=== PATIENT | female | born 1980 | race Caucasian/White ===

== ENCOUNTER 2017-08-30 22:33 | Inpatient (IN) | payer OTHER, MEDICAID ==
[2017-08-30] MEDS: SOD CHLORIDE 0.9% 1,000 ML IV (23:44)
[2017-08-30] MEDS: morphine 4 MG/ML VIAL IV (23:44)
[2017-08-30] MEDS: ONDANSETRON 4 MG INJ IV (23:44)
[2017-08-30 23:47] LABS: ADD MAN DIFF? NO
[2017-08-30 23:53] LABS: BASOPHILS % 0.2 % (0.0-2.0); HEMATOCRIT 36.5 % (37.0-47.0); HEMOGLOBIN 12.5 g/dl (12.0-16.0); LYMPHOCYTES # 0.7 10^3/ul (0.8-2.9); LYMPHOCYTES % 4.1 % (15.0-51.0); MEAN CORPUSCULAR HEMOGLOBIN 30.8 pg (29.0-33.0); MEAN CORPUSCULAR HGB CONC 34.2 g/dl (32.0-37.0); MEAN CORPUSCULAR VOLUME 89.9 fl (82.0-101.0); MEAN PLATELET VOLUME 9.9 fl (7.4-10.4); MONOCYTE # 1.2 10^3/ul (0.3-0.9); MONOCYTES % 6.4 % (0.0-11.0); NEUTROPHIL # 16.1 10^3/ul (1.6-7.5); NEUTROPHILS % 88.9 % (39.0-77.0); PLATELET COUNT 261 10^3/UL (140-415); RED BLOOD COUNT 4.06 10^6/ul (4.20-5.40); RED CELL DISTRIBUTION WIDTH 12.4 % (11.5-14.5)
[2017-08-30 23:53] LABS: WHITE BLOOD COUNT 18.1 10^3/ul (4.8-10.8)
[2017-08-30 23:57] LABS: ADD UMIC YES; UR ASCORBIC ACID NEGATIVE (NEGATIVE); UR BILIRUBIN (Dip) NEGATIVE (NEGATIVE); UR BLOOD (Dip) 3+ mg/dL (NEGATIVE); UR CLARITY CLEAR (CLEAR); UR COLOR YELLOW (YELLOW); UR GLUCOSE (Dip) 1+ mg/dL (NEGATIVE); UR KETONES (Dip) TRACE mg/dL (NEGATIVE); UR LEUKOCYTE ESTERASE (Dip) NEGATIVE Leu/ul (NEGATIVE); UR MUCUS MODERATE /HPF (NONE SEEN); UR NITRITE (Dip) NEGATIVE (NEGATIVE); UR RBC 3 /HPF (0-5); UR SPECIFIC GRAVITY (Dip) 1.025 (1.003-1.030); UR SQUAMOUS EPITHELIAL CELL FEW /HPF (FEW); UR TOTAL PROTEIN (Dip) NEGATIVE (NEGATIVE); UR UROBILINOGEN (Dip) NEGATIVE (NEGATIVE); UR WBC 3 /HPF (0-5)
[2017-08-31 00:09] LABS: LACTIC ACID 3.4 mmol/L (0.5-2.0)
[2017-08-31 00:14] LABS: ALANINE AMINOTRANSFERASE 24 IU/L (13-69); ALBUMIN 4.7 g/dl (3.3-4.9); ALBUMIN/GLOBULIN RATIO 1.42; ALKALINE PHOSPHATASE 88 IU/L (42-121); ANION GAP 23 (8-16); ASPARTATE AMINO TRANSFERASE 25 IU/L (15-46); BILIRUBIN,INDIRECT 0.4 mg/dl (0-1.1); BILIRUBIN,TOTAL 0.4 mg/dl (0.2-1.3); BLOOD UREA NITROGEN 12 mg/dl (7-20); CARBON DIOXIDE 22 mmol/L (21-31); CHLORIDE 98 mmol/L (97-110); GLUCOSE 134 mg/dl (70-220); LIPASE 116 U/L (23-300); POTASSIUM 3.7 mmol/L (3.5-5.1); SODIUM 139 mmol/L (135-144)
[2017-08-31] MEDS: SOD CHLORIDE 0.9% 100 ML (00:33)
[2017-08-31] MEDS: IOHEXOL 300MG/ML 150 ML BTL (00:33)
[2017-08-31] MEDS: SODIUM CHLORIDE 0.9% 1L BAG IV* (00:56)
[2017-08-31] MEDS: PIPER-TAZO 3.375 GM IV (PMX) 100 ML IVPB ×4 (01:21→18:13)
[2017-08-31] MEDS ORDERED: ONDANSETRON 4 MG INJ IV (02:00)
[2017-08-31 02:09] LABS: PROTIME 13.3 Sec (11.9-14.9)
[2017-08-31 02:10] LABS: LACTIC ACID 3.1 mmol/L (0.5-2.0)
[2017-08-31 02:11] LABS: PARTIAL THROMBOPLASTIN TIME 31.2 Sec (25.0-35.0)
[2017-08-31] MEDS: SOD CHLORIDE 0.9% 1,000 ML IV (02:37)
[2017-08-31] MEDS: LACTATED RINGER'S 1,000 ML IV ×4 (02:40→13:40)
[2017-08-31 02:45] LABS: TROPONIN-I < 0.012 ng/ml (0.00-0.12)
[2017-08-31] MEDS: morphine 2 MG INJ IV ×3 (02:47→22:45)
[2017-08-31] MEDS: NACL 0.9% 3 ML SYG IV (05:31)
[2017-08-31 07:00] LABS: LACTIC ACID 2.8 mmol/L (0.5-2.0)
[2017-08-31] MEDS ORDERED: LACTATED RINGER'S 1,000 ML IV (07:30)
[2017-08-31 11:03] LABS: LACTIC ACID 1.2 mmol/L (0.5-2.0)
[2017-08-31 13:12] LABS: FREE T4 (FREE THYROXINE) 1.13 ng/dl (0.79-2.35)
[2017-08-31 14:05] LABS: ADD MAN DIFF? NO
[2017-08-31 14:08] LABS: BASOPHILS % 0.3 % (0.0-2.0); EOSINOPHILS % 0.3 % (0.0-7.0); HEMATOCRIT 28.9 % (37.0-47.0); HEMOGLOBIN 9.6 g/dl (12.0-16.0); LYMPHOCYTES # 1.9 10^3/ul (0.8-2.9); LYMPHOCYTES % 19.1 % (15.0-51.0); MEAN CORPUSCULAR HEMOGLOBIN 30.5 pg (29.0-33.0); MEAN CORPUSCULAR HGB CONC 33.2 g/dl (32.0-37.0); MEAN CORPUSCULAR VOLUME 91.7 fl (82.0-101.0); MEAN PLATELET VOLUME 10.3 fl (7.4-10.4); MONOCYTE # 0.7 10^3/ul (0.3-0.9); MONOCYTES % 7.3 % (0.0-11.0); NEUTROPHIL # 7.2 10^3/ul (1.6-7.5); NEUTROPHILS % 72.7 % (39.0-77.0); PLATELET COUNT 195 10^3/UL (140-415); RED BLOOD COUNT 3.15 10^6/ul (4.20-5.40); RED CELL DISTRIBUTION WIDTH 13.1 % (11.5-14.5)
[2017-08-31 14:08] LABS: WHITE BLOOD COUNT 9.9 10^3/ul (4.8-10.8)
[2017-08-31 14:33] LABS: ALANINE AMINOTRANSFERASE 25 IU/L (13-69); ALBUMIN 3.2 g/dl (3.3-4.9); ALBUMIN/GLOBULIN RATIO 1.14; ALKALINE PHOSPHATASE 60 IU/L (42-121); ANION GAP 12 (8-16); ASPARTATE AMINO TRANSFERASE 16 IU/L (15-46); BILIRUBIN,INDIRECT 0.7 mg/dl (0-1.1); BILIRUBIN,TOTAL 0.7 mg/dl (0.2-1.3); BLOOD UREA NITROGEN 5 mg/dl (7-20); CALCIUM 8.3 mg/dl (8.4-10.2); CARBON DIOXIDE 24 mmol/L (21-31); CHLORIDE 106 mmol/L (97-110); CREATININE 0.61 mg/dl (0.44-1.00); GLUCOSE 98 mg/dl (70-220); POTASSIUM 3.4 mmol/L (3.5-5.1); SODIUM 139 mmol/L (135-144)
[2017-08-31] MEDS: D5-NS + KCL 40 MEQ 1,000 ML IV ×2 (16:00→20:54)
[2017-08-31] MEDS ORDERED: D5-NS + KCL 40 MEQ 1,000 ML IV (16:00)
[2017-08-31] MEDS ORDERED: MIDAZOLAM 1 MG/ML 2 ML INJ (16:38)
[2017-08-31] MEDS: BUPIVACAINE 0.25%/EPI (SDV) 30 ML INJ (17:06)
[2017-08-31] MEDS ORDERED: morphine 2 MG INJ IV (17:30)
[2017-08-31] MEDS ORDERED: ONDANSETRON 4 MG INJ (17:32)
[2017-08-31] MEDS ORDERED: NEOSTIGMINE 3 MG/3 ML SYRINGE (17:34)
[2017-08-31] MEDS ORDERED: LIDOCAINE 2% (SDV) 5 ML INJ (17:34)
[2017-08-31] MEDS ORDERED: ROCURONIUM 50 MG INJ (17:34)
[2017-08-31] MEDS ORDERED: PROPOFOL 20 ML (17:34)
[2017-08-31] MEDS ORDERED: GLYCOPYRROLATE 0.4 MG INJ (17:34)
[2017-08-31] MEDS ORDERED: CEFAZOLIN 1 GM INJ (17:35)
[2017-08-31] MEDS: HYDROmorphONE (0.2 MG/ML) 10ML SYG IV ×2 (17:56→18:21)
[2017-08-31] MEDS: MEPERIDINE 25 MG INJ IV (17:56)
[2017-08-31] MEDS: ONDANSETRON 4 MG INJ IV (17:56)
[2017-08-31] MEDS ORDERED: HYDROmorphONE (0.2 MG/ML) 10ML SYG IV (18:00)
[2017-08-31] MEDS ORDERED: FENTAnyl 50 MCG/ML VIAL IV (18:00)
[2017-08-31] MEDS ORDERED: DIPHENHYDRAMINE 50 MG INJ IV (18:00)
[2017-08-31] MEDS: POTASSIUM CHLORIDE 100 ML IVPB (18:20)
[2017-08-31] MEDS: FAMOTIDINE 20 MG INJ IV (20:53)
[2017-09-01] MEDS: PIPER-TAZO 3.375 GM IV (PMX) 100 ML IVPB ×5 (00:26→23:32)
[2017-09-01] MEDS: morphine 2 MG INJ IV ×2 (02:58→07:48)
[2017-09-01 05:43] LABS: ADD MAN DIFF? NO
[2017-09-01] MEDS: D5-NS + KCL 40 MEQ 1,000 ML IV ×2 (05:44)
[2017-09-01 05:49] LABS: WHITE BLOOD COUNT 8.2 10^3/ul (4.8-10.8)
[2017-09-01 05:49] LABS: BASOPHILS % 0.2 % (0.0-2.0); EOSINOPHILS % 0.2 % (0.0-7.0); HEMATOCRIT 26.5 % (37.0-47.0); HEMOGLOBIN 8.9 g/dl (12.0-16.0); LYMPHOCYTES # 1.7 10^3/ul (0.8-2.9); LYMPHOCYTES % 21.3 % (15.0-51.0); MEAN CORPUSCULAR HEMOGLOBIN 30.7 pg (29.0-33.0); MEAN CORPUSCULAR HGB CONC 33.6 g/dl (32.0-37.0); MEAN CORPUSCULAR VOLUME 91.4 fl (82.0-101.0); MEAN PLATELET VOLUME 9.6 fl (7.4-10.4); MONOCYTE # 0.7 10^3/ul (0.3-0.9); MONOCYTES % 8.1 % (0.0-11.0); NEUTROPHIL # 5.7 10^3/ul (1.6-7.5); NEUTROPHILS % 69.8 % (39.0-77.0); PLATELET COUNT 182 10^3/UL (140-415)
[2017-09-01 06:11] LABS: ANION GAP 9 (8-16); BLOOD UREA NITROGEN 2 mg/dl (7-20); CALCIUM 8.3 mg/dl (8.4-10.2); CARBON DIOXIDE 28 mmol/L (21-31); CHLORIDE 107 mmol/L (97-110); CREATININE 0.58 mg/dl (0.44-1.00); GLUCOSE 135 mg/dl (70-220); POTASSIUM 3.8 mmol/L (3.5-5.1); SODIUM 140 mmol/L (135-144)
[2017-09-01 06:16] LABS: MAGNESIUM 1.6 mg/dl (1.7-2.5)
[2017-09-01 06:16] LABS: PHOSPHORUS 2.7 mg/dl (2.5-4.9)
[2017-09-01] MEDS: FAMOTIDINE 20 MG INJ IV (07:47)
[2017-09-01] MEDS: NACL 0.9% 3 ML SYG IV (07:49)
[2017-09-01] MEDS: OXYCODONE/ACETAMINOPHEN (5/325) TAB PO ×2 (11:10→16:02)
[2017-09-01] MEDS: FAMOTIDINE 20 MG TAB PO ×2 (12:00→20:15)
[2017-09-01] MEDS: MAGNESIUM SULFATE 2 GM/50 ML 50 ML IVPB (12:58)
[2017-09-01] MEDS ORDERED: VITAMIN A & D 5 GM OINT PACKET TOP (16:25)
[2017-09-01] MEDS: ONDANSETRON 4 MG INJ IV (17:55)
[2017-09-02] MEDS: PIPER-TAZO 3.375 GM IV (PMX) 100 ML IVPB (05:52)
[2017-09-02] MEDS: OXYCODONE/ACETAMINOPHEN (5/325) TAB PO (05:55)
[2017-09-02 06:11] LABS: ADD MAN DIFF? NO
[2017-09-02 06:14] LABS: BASOPHILS % 0.6 % (0.0-2.0); EOSINOPHILS # 0.1 10^3/ul (0.0-0.5); HEMATOCRIT 27.6 % (37.0-47.0); LYMPHOCYTES # 2.3 10^3/ul (0.8-2.9); LYMPHOCYTES % 46.7 % (15.0-51.0); MEAN CORPUSCULAR HEMOGLOBIN 30.3 pg (29.0-33.0); MEAN CORPUSCULAR HGB CONC 32.6 g/dl (32.0-37.0); MEAN CORPUSCULAR VOLUME 92.9 fl (82.0-101.0); MEAN PLATELET VOLUME 10.1 fl (7.4-10.4); MONOCYTE # 0.4 10^3/ul (0.3-0.9); MONOCYTES % 7.6 % (0.0-11.0); NEUTROPHIL # 2.2 10^3/ul (1.6-7.5); NEUTROPHILS % 43.9 % (39.0-77.0); PLATELET COUNT 202 10^3/UL (140-415); RED BLOOD COUNT 2.97 10^6/ul (4.20-5.40); RED CELL DISTRIBUTION WIDTH 12.8 % (11.5-14.5)
[2017-09-02 06:55] LABS: ALANINE AMINOTRANSFERASE 34 IU/L (13-69); ALBUMIN 3.2 g/dl (3.3-4.9); ALKALINE PHOSPHATASE 67 IU/L (42-121); ANION GAP 9 (8-16); ASPARTATE AMINO TRANSFERASE 33 IU/L (15-46); BILIRUBIN,INDIRECT 0.4 mg/dl (0-1.1); BILIRUBIN,TOTAL 0.4 mg/dl (0.2-1.3); BLOOD UREA NITROGEN 4 mg/dl (7-20); CALCIUM 8.6 mg/dl (8.4-10.2); CARBON DIOXIDE 29 mmol/L (21-31); CHLORIDE 108 mmol/L (97-110); GLUCOSE 102 mg/dl (70-220); SODIUM 142 mmol/L (135-144); TOTAL PROTEIN 6.1 g/dl (6.1-8.1)
[2017-09-02] MEDS: FAMOTIDINE 20 MG TAB PO (08:31)
[2017-09-02] MEDS ORDERED: DOCUSATE SODIUM 100 MG CAP PO (10:30)
[2017-09-02] MEDS: POLYETHYLENE GLYCOL 17 GM PACKET PO (11:36)
[2017-09-02] MEDS ORDERED: metroNIDAZOLE 500 MG TAB PO (14:00)
[2017-09-03] MEDS ORDERED: LEVOFLOXACIN 500 MG TAB PO (09:00)
== END 2017-09-02 14:55 | disposition home or self-care (01) | DRG 853 ==
LOC: FTE 22:33 → MS2 08-31 01:37
PROC: 0DTJ4ZZ Resection of Appendix, Percutaneous Endoscopic Approach (ICD-10-PCS; principal; 2017-08-31 16:35)
DX: A41.9 Sepsis, unspecified organism (principal); K35.3 Acute appendicitis with localized peritonitis; D62 Acute posthemorrhagic anemia; E03.9 Hypothyroidism, unspecified; Z98.51 Tubal ligation status
CPT/HCPCS: 36415; 74018; 74177; 80048; 80053; 81001; 83605; 83690; 83735; 84100; 84439; 84443; 84484; 84703; 85025; 85610; 85730; 87040; 87086; 88304; 93005; 96361; 96365; 96375; 99291-25

== ENCOUNTER 2018-11-08 21:42 | Emergency (ER) | payer OTHER ==
[2018-11-09] MEDS: DIPHENHYDRAMINE 50 MG INJ IM (01:28)
[2018-11-09] MEDS: predniSONE 20 MG TAB PO (01:28)
== END 2018-11-09 01:39 | disposition home or self-care (01) ==
LOC: FTE 21:42
DX: R21 Rash and other nonspecific skin eruption (principal)
CPT/HCPCS: 96372; 99284-25

== ENCOUNTER 2018-12-29 17:31 | Emergency (ER) | payer OTHER ==
[2018-12-29 18:33] LABS: URINE BLOOD (Dip) POC Negative (NEGATIVE); URINE GLUCOSE (Dip) POC Negative (NEGATIVE); URINE KETONES (Dip) POC Trace (NEGATIVE); URINE LEUKOCYTE EST (Dip) POC Negative (NEGATIVE); URINE NITRITE (Dip) POC Negative (NEGATIVE); URINE TOTAL PROTEIN POC Negative (NEGATIVE)
[2018-12-29 18:33] LABS: URINE PH (Dip) POC 5.5 (5.0-8.5)
[2018-12-29] MEDS: KETOROLAC 60 MG INJ IM (18:59)
[2018-12-29] MEDS: LIDOCAINE/MYLANTA 40 ML BTL PO (19:01)
== END 2018-12-29 19:45 | disposition home or self-care (01) ==
LOC: E/R 17:31
DX: R07.89 Other chest pain (principal); R40.2142 Coma scale, eyes open, spontaneous, at arrival to emergency department; R40.2362 Coma scale, best motor response, obeys commands, at arrival to emergency department
CPT/HCPCS: 81003; 81025; 93005; 96372; 99284-25